=== PATIENT | female | born 1960 | race American Indian/Alaskan Native ===

== ENCOUNTER 2025-03-14 18:08 | Inpatient (IN) | payer OTHER ==
[2025-03-14 19:18] LABS: BG HCT 32.0 % (32.4-45.2); VENOUS BASE EXCESS -6.2 mmol/L (-2-2); VENOUS O2 SATURATION 65.7 % (70-80); VENOUS PCO2 40.6 mmHg (38-52); VENOUS PH 7.304 (7.310-7.410)
[2025-03-14 19:26] LABS: INR 3.83 (0.83-1.09); PROTHROMBIN TIME (PATIENT) 41.7 SEC (9.7-13.0)
[2025-03-14 19:28] LABS: ACTIVATED PTT 28.4 SECONDS (25.2-36.5)
[2025-03-14] MEDS ORDERED: ONDANSETRON 4 MG/2 ML VIAL ONE (19:29)
[2025-03-14] MEDS ORDERED: FAMOTIDINE 20 MG/50 ML IVPB 20 MG/50 ML MG IVPB ONE (19:29)
[2025-03-14] MEDS ORDERED: ACETAMINOPHEN INJECTION 100 ML ONE (19:29)
[2025-03-14 19:34] LABS: ABSOLUTE IMMATURE GRANULOCYTES 0.07 x10^3/uL (0.0-0.031); BASOPHILS # 0.02 x10^3/uL (0.01-0.08); EOSINOPHIL % 0.0 % (0.7-5.8); EOSINOPHILS # 0.00 x10^3/uL (0.04-0.36); MCHC 31.7 g/dl (32.2-35.5); MEAN CELL VOLUME 89.1 fl (79.4-94.8); MONOCYTE # 0.56 x10^3/uL (0.24-0.86); MONOCYTE % 5.4 % (4.7-12.5); RDW 15.0 % (12.4-16.4)
[2025-03-14] MEDS: ONDANSETRON 4 MG/2 ML VIAL IVPUSH ONE (19:35)
[2025-03-14] MEDS: FAMOTIDINE 20 MG/50 ML IVPB 20 MG/50 ML MG IVPB ONE (19:35)
[2025-03-14] MEDS: ACETAMINOPHEN 1000 MG/100 ML BAG IVPB ONE (19:35)
[2025-03-14 19:43] LABS: CO2 20 mmol/L (21-32)
[2025-03-14 19:46] LABS: CREATININE 3.4 mg/dL (0.55-1.3); SGOT/AST 859 U/L (15-37)
[2025-03-14 19:47] LABS: TOT PROT 6.8 g/dl (6.4-8.2)
[2025-03-14 19:49] LABS: ALK PHOS 95 U/L (45-117)
[2025-03-14 19:55] LABS: GLUCOSE,RANDOM 597 mg/dL (74-106); SGPT/ALT 1909 U/L (13-61)
[2025-03-14] MEDS: LACTATED RINGERS SOLUTION 1000 ML INFUS.BAG IV ONE ×2 (20:06→20:24)
[2025-03-14] MEDS: INSULIN (NOVOLOG) ASPART 100 UNITS/ML 10ML VIAL SQ ONE (20:50)
[2025-03-14 22:19] LABS: BG HCT 29.0 % (32.4-45.2); VENOUS BASE EXCESS -8.7 mmol/L (-2-2); VENOUS O2 SATURATION 56.5 % (70-80); VENOUS PCO2 37.5 mmHg (38-52); VENOUS PH 7.281 (7.310-7.410)
[2025-03-14 23:16] LABS: CO2 21 mmol/L (21-32)
[2025-03-14 23:19] LABS: CREATININE 3.2 mg/dL (0.55-1.3); SGOT/AST 687 U/L (15-37)
[2025-03-14 23:20] LABS: TOT PROT 6.1 g/dl (6.4-8.2)
[2025-03-14 23:22] LABS: ALK PHOS 82 U/L (45-117)
[2025-03-14 23:36] LABS: GLUCOSE,RANDOM 423 mg/dL (74-106); SGPT/ALT 1635 U/L (13-61)
[2025-03-15] MEDS ORDERED: LIDOCAINE 5% TOPICAL PATCH ONE (00:34)
[2025-03-15] MEDS: LIDOCAINE 5% TOPICAL PATCH TP ONE (00:35)
[2025-03-15] MEDS ORDERED: METOCLOPRAMIDE HCL INJECTION 10 MG/2 ML VIAL ONE (01:28)
[2025-03-15] MEDS ORDERED: SUCRALFATE 1 GM TABLET (FP) ONE (01:28)
[2025-03-15] MEDS ORDERED: ONDANSETRON 4 MG/2 ML VIAL ONE (01:28)
[2025-03-15] MEDS: METOCLOPRAMIDE HCL INJECTION 10 MG/2 ML VIAL IVPB ONE (01:55)
[2025-03-15] MEDS: ONDANSETRON 4 MG/2 ML VIAL IVPB ONE (01:55)
[2025-03-15] MEDS: SUCRALFATE 1 GM/10 ML UNIT DOSE CUPS PO SCH (01:55)
[2025-03-15] MEDS ORDERED: INSULIN ASPART SLIDING SCALE (NOVOLOG) 1 VIAL SQ SCH (02:00)
[2025-03-15 02:56] LABS: CO2 20.0 mmol/L (21-32); GLUCOSE,RANDOM 234.0 mg/dL (74-106)
[2025-03-15 03:00] LABS: CREATININE 3.2 mg/dL (0.55-1.3)
[2025-03-15] MEDS: SODIUM CHLORIDE 1,000 ML IV SCH (04:32)
[2025-03-15] MEDS: INSULIN GLARGINE (LANTUS) 100 UNITS/ML UNITS SQ ONE ×2 (04:34→04:38)
[2025-03-15] MEDS: INSULIN (NOVOLOG) ASPART 100 UNITS/ML 10ML VIAL SQ ONE (04:38)
[2025-03-15] MEDS: SODIUM CHLORIDE 500 ML IV STA (05:33)
[2025-03-15 06:11] LABS: CO2 22.0 mmol/L (21-32); GLUCOSE,RANDOM 262.0 mg/dL (74-106)
[2025-03-15 06:14] LABS: CREATININE 3.1 mg/dL (0.55-1.3); SGOT/AST 582.0 U/L (15-37)
[2025-03-15] MEDS ORDERED: HEPARIN NA (PORCINE) 5,000 UNITS/ML 1ML VIAL ONE (06:15)
[2025-03-15 06:16] LABS: TOT PROT 5.6 g/dl (6.4-8.2)
[2025-03-15 06:17] LABS: ALK PHOS 112.0 U/L (45-117)
[2025-03-15] MEDS: INSULIN ASPART SLIDING SCALE (NOVOLOG) 1 VIAL SQ SCH ×2 (06:22→07:12)
[2025-03-15] MEDS: HEPARIN NA (PORCINE) 5,000 UNITS/ML 1ML VIAL SQ SCH (06:22)
[2025-03-15 06:26] LABS: SGPT/ALT 1440.0 U/L (13-61)
[2025-03-15 06:28] LABS: ABSOLUTE IMMATURE GRANULOCYTES 0.08 x10^3/uL (0.0-0.031); BASOPHILS # 0.03 x10^3/uL (0.01-0.08); EOSINOPHIL % 0.0 % (0.7-5.8); EOSINOPHILS # 0.00 x10^3/uL (0.04-0.36); MCHC 31.1 g/dl (32.2-35.5); MEAN CELL VOLUME 90.4 fl (79.4-94.8); MEAN PLT VOLUME 14.1 fl (9.4-12.3); MONOCYTE # 0.52 x10^3/uL (0.24-0.86); MONOCYTE % 3.2 % (4.7-12.5); RDW 14.8 % (12.4-16.4)
[2025-03-15] MEDS: SODIUM CHLORIDE 0.9% 500 ML INFUS.BAG IV ONE (06:48)
[2025-03-15] MEDS ORDERED: LEVOTHYROXINE NA 25 MCG TABLET (FP) ONE (06:57)
[2025-03-15] MEDS: LEVOTHYROXINE NA 25 MCG TABLET (FP) PO SCH (07:06)
[2025-03-15] MEDS: LACTATED RINGERS SOLUTION 1,000 ML/1,000 ML INFUS.BAG IV ONE (09:34)
[2025-03-15] MEDS ORDERED: INSULIN ASPART SLIDING SCALE (NOVOLOG) 1 VIAL SQ ONE (09:37)
[2025-03-15 09:44] LABS: N-TERMINAL BNP 1754.7 pg/ml (5-125)
[2025-03-15] MEDS ORDERED: FUROSEMIDE 40 MG TABLET (FP) PO SCH (10:00)
[2025-03-15 11:45] LABS: MCHC 31.0 g/dl (32.2-35.5); MEAN CELL VOLUME 92.7 fl (79.4-94.8); RDW 15.1 % (12.4-16.4)
[2025-03-15 12:08] LABS: CO2 19.0 mmol/L (21-32)
[2025-03-15 12:09] LABS: GLUCOSE,RANDOM 302.0 mg/dL (74-106)
[2025-03-15 12:12] LABS: CREATININE 3.3 mg/dL (0.55-1.3)
[2025-03-15 12:23] LABS: BG HCT 30.0 % (32.4-45.2); VENOUS BASE EXCESS -9.7 mmol/L (-2-2); VENOUS O2 SATURATION 63.3 % (70-80); VENOUS PCO2 43.9 mmHg (38-52); VENOUS PH 7.219 (7.310-7.410)
[2025-03-15] MEDS: LIDOCAINE PATCH REMOVAL MC ONE (12:33)
[2025-03-15] MEDS ORDERED: AMPICILLIN NA/SULBACTAM NA 1.5 GM VIAL ONE (12:35)
[2025-03-15] MEDS: AMPICILLIN NA/SULBACTAM NA 1.5 GM in SODIUM CHLORIDE 100 ML IVPB SCH (12:43)
[2025-03-15 13:15] LABS: EPI CELLS 5 /uL (0-25.1); HYALINE CASTS 2 /uL (0-3.1); URINE APPEARANCE TURBID; URINE BACTERIA 2763 /uL (0-1359); URINE BILIRUBIN 1+ (NEGATIVE); URINE COLOR RED; URINE GLUCOSE (UA) 2+ (NEGATIVE); URINE KETONE NEGATIVE (NEGATIVE); URINE LEUK ESTERASE 3+ (NEGATIVE); URINE NITRITE POSITIVE (NEGATIVE); URINE PROTEIN 3+ (NEGATIVE); URINE RBC 6453 /uL (0-23.9); URINE UROBILINOGEN 1.0 mg/dL (0.2-1.0); URINE WBC 722 /uL (0-25.8)
[2025-03-15] MEDS ORDERED: LACTATED RINGERS SOLUTION 1,000 ML/1,000 ML INFUS.BAG IV SCH (13:45)
[2025-03-15] MEDS ORDERED: PIPERACILLIN/TAZOB 2.25 GM 2.25 GM/50 ML BAG IVPB ONE (14:06)
[2025-03-15] MEDS: PIPERACILLIN/TAZOB 2.25 GM 2.25 GM in DEXTROSE 5%-WATER - 50 ML IVPB SCH (14:13)
[2025-03-15] MEDS: LACTATED RINGERS SOLUTION 1,000 ML/1,000 ML INFUS.BAG IV SCH (14:29)
[2025-03-15 15:56] LABS: HEPATITIS B SURF AG NON-MATERN NON-REACTIVE (NONREACTIVE)
[2025-03-15] MEDS ORDERED: ACETAMINOPHEN 500 MG TABLET (FP) PO PRN (18:25)
[2025-03-15] MEDS: ACETAMINOPHEN 500 MG TABLET (FP) PO ONE (18:45)
[2025-03-15] MEDS: INSULIN GLARGINE (LANTUS) 100 UNITS/ML UNITS SQ SCH (21:13)
[2025-03-16 06:32] LABS: MCHC 31.4 g/dl (32.2-35.5); MEAN CELL VOLUME 90.9 fl (79.4-94.8); MEAN PLT VOLUME 13.8 fl (9.4-12.3); RDW 15.1 % (12.4-16.4)
[2025-03-16 06:52] LABS: CO2 23.0 mmol/L (21-32); GLUCOSE,RANDOM 151.0 mg/dL (74-106)
[2025-03-16 06:55] LABS: CREATININE 2.9 mg/dL (0.55-1.3)
[2025-03-16 07:00] LABS: N-TERMINAL BNP 5004.8 pg/ml (5-125)
[2025-03-16 07:04] LABS: SGOT/AST 341.0 U/L (15-37)
[2025-03-16 07:05] LABS: TOT PROT 5.3 g/dl (6.4-8.2)
[2025-03-16 07:09] LABS: ALK PHOS 74.0 U/L (45-117)
[2025-03-16 07:14] LABS: SGPT/ALT 1028.0 U/L (13-61)
[2025-03-16] MEDS: ONDANSETRON 4 MG/2 ML VIAL IVPUSH PRN (07:56)
[2025-03-16] MEDS: PANTOPRAZOLE SODIUM 40 MG VIAL IVPUSH SCH ×2 (08:19→09:52)
[2025-03-16] MEDS: PREGABALIN 75 MG CAPSULE PO SCH (08:19)
[2025-03-16] MEDS: LACTATED RINGERS SOLUTION 1,000 ML/1,000 ML INFUS.BAG IV SCH (08:20)
[2025-03-16] MEDS: PREGABALIN 25 MG CAPSULE PO SCH (09:52)
[2025-03-16] MEDS ORDERED: AMIODARONE HCL 100 MG TABLET PO SCH (10:00)
[2025-03-16] MEDS: PIPERACILLIN/TAZOB 2.25 GM 2.25 GM in DEXTROSE 5%-WATER - 50 ML IVPB SCH (14:05)
[2025-03-16] MEDS: LIDOCAINE 5% TOPICAL PATCH TP SCH (14:05)
[2025-03-16] MEDS: DOCUSATE SODIUM 100 MG CAPSULE (FP) PO PRN (14:05)
[2025-03-16] MEDS: INSULIN ASPART SLIDING SCALE (NOVOLOG) 1 VIAL SQ SCH (16:57)
[2025-03-16] MEDS: LIDOCAINE PATCH REMOVAL MC SCH (21:34)
[2025-03-16 23:49] LABS: HCV DIAGNOSTIC IN-HOUSE W/RFLX NON-REACTIVE (NONREACTIVE)
[2025-03-17 06:39] LABS: ABSOLUTE IMMATURE GRANULOCYTES 0.13 x10^3/uL (0.0-0.031); BASOPHILS # 0.04 x10^3/uL (0.01-0.08); EOSINOPHIL % 0.6 % (0.7-5.8); EOSINOPHILS # 0.09 x10^3/uL (0.04-0.36); MCHC 30.8 g/dl (32.2-35.5); MEAN CELL VOLUME 90.9 fl (79.4-94.8); MEAN PLT VOLUME 14.2 fl (9.4-12.3); MONOCYTE # 1.56 x10^3/uL (0.24-0.86); MONOCYTE % 10.3 % (4.7-12.5); RDW 15.2 % (12.4-16.4)
[2025-03-17 07:08] LABS: CO2 25.0 mmol/L (21-32); GLUCOSE,RANDOM 203.0 mg/dL (74-106)
[2025-03-17 07:11] LABS: CREATININE 2.6 mg/dL (0.55-1.3); SGOT/AST 186.0 U/L (15-37); SGPT/ALT 815.0 U/L (13-61)
[2025-03-17 07:13] LABS: TOT PROT 5.4 g/dl (6.4-8.2)
[2025-03-17 07:14] LABS: ALK PHOS 76.0 U/L (45-117)
[2025-03-17 10:28] LABS: OPIATES, URI NEGATIVE (NEGATIVE); PHENCYCLIDINE,URINE NEGATIVE (NEGATIVE)
[2025-03-17 10:29] LABS: URINE BARBITURATES NEGATIVE (NEGATIVE); URINE BENZODIAZEPINES NEGATIVE (NEGATIVE)
[2025-03-17 10:30] LABS: COCAINE, UR NEGATIVE (NEGATIVE); METHADONE, UR NEGATIVE (NEGATIVE)
[2025-03-17] MEDS: MEROPENEM 1 GM in DEXTROSE 5%-WATER 100 ML IVPB SCH ×2 (13:01→17:57)
[2025-03-17 18:38] LABS: EPI CELLS 28 /uL (0-25.1); HYALINE CASTS 0 /uL (0-3.1); URINE APPEARANCE CLEAR; URINE BACTERIA 63 /uL (0-1359); URINE BILIRUBIN NEGATIVE (NEGATIVE); URINE COLOR YELLOW; URINE GLUCOSE (UA) 3+ (NEGATIVE); URINE KETONE NEGATIVE (NEGATIVE); URINE LEUK ESTERASE 2+ (NEGATIVE); URINE NITRITE NEGATIVE (NEGATIVE); URINE PROTEIN TRACE (NEGATIVE); URINE UROBILINOGEN 1.0 mg/dL (0.2-1.0)
[2025-03-17 18:55] LABS: URINE RBC 999.4 /uL (0-23.9)
[2025-03-17 19:06] LABS: HIV INTERPRETATION NEGATIVE (NEGATIVE)
[2025-03-18 00:52] LABS: URINE AMPHETAMINES NEGATIVE (NEGATIVE)
[2025-03-18] MEDS: MEROPENEM 1 GM in DEXTROSE 5%-WATER 100 ML IVPB SCH (01:01)
[2025-03-18 06:39] LABS: ABSOLUTE IMMATURE GRANULOCYTES 0.18 x10^3/uL (0.0-0.031); BASOPHILS # 0.04 x10^3/uL (0.01-0.08); EOSINOPHIL % 1.1 % (0.7-5.8); EOSINOPHILS # 0.12 x10^3/uL (0.04-0.36); MCHC 30.8 g/dl (32.2-35.5); MEAN CELL VOLUME 89.0 fl (79.4-94.8); MEAN PLT VOLUME 13.6 fl (9.4-12.3); MONOCYTE # 1.01 x10^3/uL (0.24-0.86); MONOCYTE % 9.1 % (4.7-12.5); RDW 15.1 % (12.4-16.4)
[2025-03-18 06:58] LABS: CO2 27.0 mmol/L (21-32); GLUCOSE,RANDOM 156.0 mg/dL (74-106)
[2025-03-18 07:01] LABS: CREATININE 2.2 mg/dL (0.55-1.3); SGOT/AST 278.0 U/L (15-37); SGPT/ALT 738.0 U/L (13-61)
[2025-03-18 07:03] LABS: TOT PROT 5.6 g/dl (6.4-8.2)
[2025-03-18 07:04] LABS: ALK PHOS 87.0 U/L (45-117)
[2025-03-18] MEDS ORDERED: INSULIN GLARGINE (LANTUS) 100 UNITS/ML UNITS SQ SCH (12:51)
[2025-03-18] MEDS: POTASSIUM CHLORIDE ORAL LIQUID 20 MEQ/15 ML PO ONE (13:59)
[2025-03-18] MEDS: APIXABAN 2.5 MG TABLET PO SCH (13:59)
[2025-03-18] MEDS: CARVEDILOL 3.125 MG TABLET (FP) PO SCH (13:59)
[2025-03-18] MEDS ORDERED: INSULIN ASPART SLIDING SCALE (NOVOLOG) 1 VIAL SQ ONE (19:36)
[2025-03-18] MEDS ORDERED: DOCUSATE SODIUM 100 MG CAPSULE (FP) PO PRN (21:01)
[2025-03-18] MEDS ORDERED: LIDOCAINE PATCH REMOVAL MC SCH (22:00)
[2025-03-18] MEDS: INSULIN GLARGINE (LANTUS) 100 UNITS/ML UNITS SQ SCH (22:30)
[2025-03-18] MEDS: LIDOCAINE PATCH REMOVAL MC SCH (22:30)
[2025-03-18] MEDS: INSULIN ASPART SLIDING SCALE (NOVOLOG) 1 VIAL SQ SCH (22:31)
[2025-03-19] MEDS: MEROPENEM 1 GM in DEXTROSE 5%-WATER 100 ML IVPB SCH (01:19)
[2025-03-19] MEDS: INSULIN GLARGINE (LANTUS) 100 UNITS/ML UNITS SQ SCH (06:51)
[2025-03-19] MEDS: LEVOTHYROXINE NA 25 MCG TABLET (FP) PO SCH (06:51)
[2025-03-19 07:55] LABS: MCHC 30.8 g/dl (32.2-35.5); MEAN CELL VOLUME 89.6 fl (79.4-94.8); RDW 15.0 % (12.4-16.4)
[2025-03-19 08:14] LABS: CO2 28.0 mmol/L (21-32)
[2025-03-19 08:15] LABS: GLUCOSE,RANDOM 213.0 mg/dL (74-106)
[2025-03-19 08:16] LABS: TOT PROT 5.8 g/dl (6.4-8.2)
[2025-03-19 08:17] LABS: CREATININE 1.7 mg/dL (0.55-1.3)
[2025-03-19 08:18] LABS: SGPT/ALT 752.0 U/L (13-61)
[2025-03-19 08:20] LABS: ALK PHOS 110.0 U/L (45-117)
[2025-03-19 08:21] LABS: SGOT/AST 358.0 U/L (15-37)
[2025-03-19] MEDS: PANTOPRAZOLE 40 MG TABLET PO SCH (10:03)
[2025-03-19] MEDS: LIDOCAINE 5% TOPICAL PATCH TP SCH (10:03)
[2025-03-19] MEDS: PREGABALIN 75 MG CAPSULE PO SCH (10:03)
[2025-03-19] MEDS: SACUBITRIL/VALSARTAN 24 MG-26 MG TABLET PO SCH (10:03)
[2025-03-20] MEDS: ONDANSETRON 4 MG/2 ML VIAL IVPUSH PRN (04:08)
[2025-03-20 08:40] LABS: ABSOLUTE IMMATURE GRANULOCYTES 0.63 x10^3/uL (0.0-0.031); BASOPHILS # 0.04 x10^3/uL (0.01-0.08); EOSINOPHIL % 1.4 % (0.7-5.8); EOSINOPHILS # 0.13 x10^3/uL (0.04-0.36); MCHC 30.4 g/dl (32.2-35.5); MEAN CELL VOLUME 91.3 fl (79.4-94.8); MONOCYTE # 0.89 x10^3/uL (0.24-0.86); MONOCYTE % 9.8 % (4.7-12.5); RDW 15.2 % (12.4-16.4)
[2025-03-20 10:18] LABS: CO2 29.0 mmol/L (21-32)
[2025-03-20 10:19] LABS: GLUCOSE,RANDOM 154.0 mg/dL (74-106)
[2025-03-20 10:20] LABS: SGPT/ALT 682.0 U/L (13-61)
[2025-03-20 10:22] LABS: CREATININE 1.8 mg/dL (0.55-1.3); SGOT/AST 308.0 U/L (15-37)
[2025-03-20 10:24] LABS: TOT PROT 5.7 g/dl (6.4-8.2)
[2025-03-20 10:26] LABS: ALK PHOS 119.0 U/L (45-117)
[2025-03-20 14:02] VITALS: BMI 28.3
[2025-03-21] MEDS ORDERED: ACETAMINOPHEN 325 MG TABLET (FP) PO PRN ×2 (15:02→16:24)
[2025-03-22] MEDS ORDERED: MEROPENEM 1 GM VIAL (RESTRICTED TO ID) IVPB ONE (00:38)
[2025-03-23 17:44] VITALS: RESP 18
[2025-03-24 12:20] VITALS: TEMP 98.1
[2025-03-24 14:17] VITALS: BP 109/48; PULSE 103
== END 2025-03-24 15:13 | disposition home or self-care (01) | DRG 469 ==
LOC: JER 18:08 → JERBED 03-15 01:25 → J2W 03-15 15:22 → J6S 03-18 20:32
PROVIDERS: ADMIT Hospitalist; ATTEND Internal Medicine
DX: N17.9 Acute kidney failure, unspecified (principal); E03.9 Hypothyroidism, unspecified; E11.22 Type 2 diabetes mellitus with diabetic chronic kidney disease; N18.9 Chronic kidney disease, unspecified; I13.0 Hypertensive heart and chronic kidney disease with heart failure and stage 1 through stage 4 chronic kidney disease, or unspecified chronic kidney disease; I50.22 Chronic systolic (congestive) heart failure; D64.9 Anemia, unspecified; I25.10 Atherosclerotic heart disease of native coronary artery without angina pectoris; E11.10 Type 2 diabetes mellitus with ketoacidosis without coma; E78.5 Hyperlipidemia, unspecified; R79.89 Other specified abnormal findings of blood chemistry; Z79.01 Long term (current) use of anticoagulants; I48.0 Paroxysmal atrial fibrillation; E87.6 Hypokalemia; N39.0 Urinary tract infection, site not specified; E87.1 Hypo-osmolality and hyponatremia; K71.9 Toxic liver disease, unspecified; T46.2X5A Adverse effect of other antidysrhythmic drugs, initial encounter
CPT/HCPCS: 0241U-QW; 36415; 71045-TC-FY; 73030-TC-LT-FY; 73060-TC-LT-FY; 76705-TC; 76775-TC; 80048; 80053; 80076; 80307; 81003; 82010; 82272; 82550; 82803; 82962; 83605; 83690; 83735; 83880; 84100; 84484; 85025; 85610; 85730; 86038; 86140; 86160; 86704; 86708; 86803; 86850; 86870; 86880; 86900; 86901; 86902; 87040; 87086; 87340; 87389; 87517; 93005; 93010; 93306-TC; 97116-GP; 97162-GP; 99285-25